=== PATIENT | female | born 1940 | race Two or more races ===

== ENCOUNTER 2020-02-09 21:59 | Inpatient (IN) | payer OTHER, MEDICAID, SELFPAY ==
[~2020-02-09] VITALS: Ht 157.5 cm; Wt 54.0 kg
[2020-02-09 22:20] VITALS: BP 128/54
[2020-02-09] MEDS ORDERED: HYDR-3298 PO (22:27)
[2020-02-09 23:12] LABS: BASOPHILS # (AUTO) 0.1 K/uL (0.00-0.22); BASOPHILS % (AUTO) 1.3 % (0.0-2.0); EOSINOPHILS % (AUTO) 0.1 % (0.0-4.0); HEMATOCRIT 37.9 % (36-48); HEMOGLOBIN 12.7 g/dL (12.0-16.0); LYMPHOCYTES # (AUTO) 1.6 K/uL (2.5-16.5); LYMPHOCYTES % (AUTO) 31.8 % (20.5-51.1); MEAN CORPUSCULAR HEMOGLOBIN 30 pg (27-31); MEAN CORPUSCULAR HGB CONC 34 g/dL (33-37); MEAN CORPUSCULAR VOLUME 88.9 fL (80-94); MONOCYTES # (AUTO) 0.4 K/uL (0.8-1.0); NEUTROPHILS % (AUTO) 58.8 % (42.2-75.2); PLATELET COUNT (AUTO) 288 K/uL (140-450); RED BLOOD CELL COUNT(AUTO) 4.27 MIL/uL (4.20-5.40); RED CELL DISTRIBUTION WIDTH 15.2 % (11.6-13.7); WHITE BLOOD COUNT (AUTO) 5.1 K/uL (4.8-10.8)
[2020-02-09 23:33] LABS: ALBUMIN 3.2 g/dL (3.4-5.0); ANION GAP 14.8 (8-16); ASPARTATE AMINOTRANSFERASE 70 U/L (15-37); CARBON DIOXIDE 23.2 mmol/L (21-32); CHLORIDE 95 mmol/L (98-107); CREATININE 1.2 mg/dL (0.6-1.3); GLUCOSE 103 mg/dL (74-106); SODIUM SERUM 129 mmol/L (136-145); TOTAL BILIRUBIN 0.4 mg/dL (0.0-1.0); UREA NITROGEN, BLOOD 23 mg/dL (7-18)
[2020-02-09 23:42] LABS: APPEARANCE,URINE CLEAR (CLEAR); BILIRUBIN,URINE NEGATIVE (NEGATIVE); BLOOD, URINE TRACE-I (NEGATIVE); COLOR,URINE YELLOW (YELLOW); LEUKOCYTE ESTERASE ,URINE NEGATIVE (NEGATIVE); NITRITE, URINE NEGATIVE (NEGATIVE); UGLUCOSE NEGATIVE (NEGATIVE)
[2020-02-09] MEDS ORDERED: NACL 0.9% 1,000 ML IV ONE (23:50)
[2020-02-10] MEDS ORDERED: PIPERACILLIN/TAZOBACTAM 3.375 GM in DEXTROSE 5% 50 ML IV ONE (00:10)
[2020-02-10] MEDS ORDERED: HYDROcodone/APAP 7.5/325 MG 1 TAB PO PRN (00:15)
[2020-02-10] MEDS ORDERED: ONDANSETRON 4 MG/2 ML VIAL IVP PRN (00:15)
[2020-02-10] MEDS ORDERED: ACETAMINOPHEN 325 MG TAB PO PRN (00:15)
[2020-02-10] MEDS ORDERED: PIPERACILLIN/TAZOBACTAM 3.375 GM VIAL IV ONE ×2 (00:18→05:24)
[2020-02-10] MEDS ORDERED: guaiFENesin DM 200/20 MG-10 ML 10 ML UDC PO PRN (00:55)
[2020-02-10 01:00] VITALS: BP 141/68
[2020-02-10 01:20] LABS: FREE T4 (FREE THYROXINE) 1.35 ng/dL (0.76-1.46); MAGNESIUM 2.1 mg/dL (1.8-2.4); PHOSPHORUS 2.7 mg/dL (2.5-4.9); THYROID STIMULATING HORMONE 2.14 uIU/mL (0.34-3.74)
[2020-02-10] MEDS: PIPERACILLIN/TAZOBACTAM 3.375 GM in DEXTROSE 5% 50 ML IV SCH ×3 (05:45→17:26)
[2020-02-10 05:46] VITALS: BP 136/83
[2020-02-10 08:00] VITALS: BP 147/63
[2020-02-10] MEDS: VITAMIN D 400 IU TAB PO SCH (08:51)
[2020-02-10] MEDS: ZINC SULF 220 MG CAP PO SCH (08:51)
[2020-02-10] MEDS: DOCUSATE SODIUM 100 MG GELCAP PO SCH ×2 (08:51→22:08)
[2020-02-10] MEDS: ASCORBIC ACID 500 MG TAB PO SCH (08:51)
[2020-02-10] MEDS: ENOXAPARIN 40 MG/0.4 ML SYR SUBQ SCH (09:10)
[2020-02-10] MEDS: LOSARTAN 50 MG TAB PO SCH (09:11)
[2020-02-10 12:00] VITALS: BP 115/63
[2020-02-10 16:00] VITALS: BP 109/66
[2020-02-10] MEDS ORDERED: DEXAMETHASONE 4 MG/ML VIAL IVP ONE (18:30)
[2020-02-10 20:00] VITALS: BP 122/61
[2020-02-10] MEDS ORDERED: DEXAMETHASONE 10 MG/ML VIAL IVP ONE (20:00)
[2020-02-10] MEDS ORDERED: DEXAMETHASONE 10 MG/ML VIAL ONE (22:05)
[2020-02-11] VITALS: BP 143/88
[2020-02-11 04:00] VITALS: BP 135/64
[2020-02-11 08:00] VITALS: BP 131/65
[2020-02-11 08:31] LABS: BASOPHILS % (AUTO) 0.9 % (0.0-2.0); HEMATOCRIT 38.8 % (36-48); HEMOGLOBIN 12.9 g/dL (12.0-16.0); LYMPHOCYTES % (AUTO) 19.4 % (20.5-51.1); MEAN CORPUSCULAR HEMOGLOBIN 30 pg (27-31); MEAN CORPUSCULAR HGB CONC 33 g/dL (33-37); MEAN CORPUSCULAR VOLUME 90.1 fL (80-94); MONOCYTES # (AUTO) 0.2 K/uL (0.8-1.0); MONOCYTES % (AUTO) 3.8 % (1.7-9.3); NEUTROPHILS # (AUTO) 3.8 K/uL (1.8-7.7); NEUTROPHILS % (AUTO) 75.9 % (42.2-75.2); PLATELET COUNT (AUTO) 298 K/uL (140-450); RED CELL DISTRIBUTION WIDTH 15.6 % (11.6-13.7)
[2020-02-11 08:57] LABS: CHOL/HDL RATIO 5.1 (1-4.5)
[2020-02-11 08:58] LABS: ALBUMIN 2.8 g/dL (3.4-5.0); ANION GAP 15.3 (8-16); ASPARTATE AMINOTRANSFERASE 76 U/L (15-37); CARBON DIOXIDE 22.8 mmol/L (21-32); CHLORIDE 99 mmol/L (98-107); CREATININE 1.2 mg/dL (0.6-1.3); GLUCOSE 122 mg/dL (74-106); MAGNESIUM 2.2 mg/dL (1.8-2.4); PHOSPHORUS 4.2 mg/dL (2.5-4.9); POTASSIUM 4.1 mmol/L (3.5-5.1); SODIUM SERUM 133 mmol/L (136-145); TOTAL BILIRUBIN 0.5 mg/dL (0.0-1.0); UREA NITROGEN, BLOOD 18 mg/dL (7-18)
[2020-02-11] MEDS: VITAMIN D 400 IU TAB PO SCH (09:00)
[2020-02-11] MEDS: ZINC SULF 220 MG CAP PO SCH (09:21)
[2020-02-11] MEDS: DOCUSATE SODIUM 100 MG GELCAP PO SCH ×2 (09:22→21:54)
[2020-02-11] MEDS: DEXAMETHASONE 4 MG TAB PO SCH (09:23)
[2020-02-11] MEDS: LOSARTAN 50 MG TAB PO SCH (09:24)
[2020-02-11] MEDS: ASCORBIC ACID 500 MG TAB PO SCH (09:25)
[2020-02-11] MEDS: ENOXAPARIN 40 MG/0.4 ML SYR SUBQ SCH (09:27)
[2020-02-11] MEDS ORDERED: CRUSHER, PILL MC ONE (09:31)
[2020-02-11 12:00] VITALS: BP 138/70
[2020-02-11 16:00] VITALS: BP 116/64
[2020-02-11 20:00] VITALS: BP 112/62
[2020-02-12] VITALS: BP 115/56
[2020-02-12 04:00] VITALS: BP 122/59
[2020-02-12 08:00] VITALS: BP 112/58
[2020-02-12] MEDS: VITAMIN D 400 IU TAB PO SCH (08:51)
[2020-02-12] MEDS: DEXAMETHASONE 4 MG TAB PO SCH (08:51)
[2020-02-12] MEDS: ASCORBIC ACID 500 MG TAB PO SCH (08:52)
[2020-02-12] MEDS: DOCUSATE SODIUM 100 MG GELCAP PO SCH ×2 (08:52→21:01)
[2020-02-12] MEDS: ZINC SULF 220 MG CAP PO SCH (08:52)
[2020-02-12] MEDS: LOSARTAN 50 MG TAB PO SCH (08:54)
[2020-02-12] MEDS: ENOXAPARIN 40 MG/0.4 ML SYR SUBQ SCH (08:55)
[2020-02-12] MEDS ORDERED: SIMETHICONE 80 MG TAB.CHEW PO PRN (09:05)
[2020-02-12 09:28] LABS: BASOPHILS % (AUTO) 0.2 % (0.0-2.0); HEMATOCRIT 41.1 % (36-48); HEMOGLOBIN 13.7 g/dL (12.0-16.0); LYMPHOCYTES # (AUTO) 1.4 K/uL (2.5-16.5); LYMPHOCYTES % (AUTO) 15.6 % (20.5-51.1); MEAN CORPUSCULAR HEMOGLOBIN 30 pg (27-31); MEAN CORPUSCULAR HGB CONC 33 g/dL (33-37); MEAN CORPUSCULAR VOLUME 89.4 fL (80-94); MONOCYTES # (AUTO) 0.9 K/uL (0.8-1.0); MONOCYTES % (AUTO) 10.4 % (1.7-9.3); NEUTROPHILS # (AUTO) 6.5 K/uL (1.8-7.7); NEUTROPHILS % (AUTO) 73.8 % (42.2-75.2); PLATELET COUNT (AUTO) 364 K/uL (140-450); RED CELL DISTRIBUTION WIDTH 15.7 % (11.6-13.7); WHITE BLOOD COUNT (AUTO) 8.7 K/uL (4.8-10.8)
[2020-02-12 09:43] LABS: ANION GAP 17.5 (8-16); ASPARTATE AMINOTRANSFERASE 62 U/L (15-37); CARBON DIOXIDE 20.5 mmol/L (21-32); CHLORIDE 98 mmol/L (98-107); CREATININE 1.3 mg/dL (0.6-1.3); GLUCOSE 137 mg/dL (74-106); LACTATE DEHYDROGENASE 614 U/L (81-234); SODIUM SERUM 132 mmol/L (136-145); TOTAL BILIRUBIN 0.4 mg/dL (0.0-1.0); UREA NITROGEN, BLOOD 37 mg/dL (7-18)
[2020-02-12 12:00] VITALS: BP 114/55
[2020-02-12 16:00] VITALS: BP 117/65
[2020-02-12 20:00] VITALS: BP 154/77
[2020-02-12 21:35] LABS: FERRITIN 2791 ng/mL (15 - 150); LACTATE DEHYDROGENASE 655 IU/L (0-214)
[2020-02-12] MEDS ORDERED: PIPERACILLIN/TAZOBACTAM 3.375 GM VIAL IV ONE (23:11)
[2020-02-12] MEDS: PIPERACILLIN/TAZOBACTAM 3.375 GM in DEXTROSE 5% 50 ML IV SCH (23:22)
[2020-02-13] VITALS: BP 121/70
[2020-02-13 04:00] VITALS: BP 144/69
[2020-02-13] MEDS ORDERED: PIPERACILLIN/TAZOBACTAM 3.375 GM VIAL IV ONE (05:14)
[2020-02-13] MEDS: PIPERACILLIN/TAZOBACTAM 3.375 GM in DEXTROSE 5% 50 ML IV SCH ×3 (05:20→20:41)
[2020-02-13 06:26] LABS: BASOPHILS % (AUTO) 0.3 % (0.0-2.0); HEMATOCRIT 38.6 % (36-48); HEMOGLOBIN 12.7 g/dL (12.0-16.0); LYMPHOCYTES # (AUTO) 1.2 K/uL (2.5-16.5); LYMPHOCYTES % (AUTO) 13.3 % (20.5-51.1); MEAN CORPUSCULAR HEMOGLOBIN 30 pg (27-31); MEAN CORPUSCULAR HGB CONC 33 g/dL (33-37); MEAN CORPUSCULAR VOLUME 90.3 fL (80-94); MONOCYTES % (AUTO) 11.6 % (1.7-9.3); NEUTROPHILS # (AUTO) 6.8 K/uL (1.8-7.7); NEUTROPHILS % (AUTO) 74.8 % (42.2-75.2); PLATELET COUNT (AUTO) 384 K/uL (140-450); RED BLOOD CELL COUNT(AUTO) 4.27 MIL/uL (4.20-5.40); RED CELL DISTRIBUTION WIDTH 15.7 % (11.6-13.7); WHITE BLOOD COUNT (AUTO) 9.1 K/uL (4.8-10.8)
[2020-02-13 07:15] LABS: ALBUMIN 2.6 g/dL (3.4-5.0); ANION GAP 17.6 (8-16); ASPARTATE AMINOTRANSFERASE 46 U/L (15-37); CARBON DIOXIDE 21.5 mmol/L (21-32); CHLORIDE 101 mmol/L (98-107); CREATININE 1.5 mg/dL (0.6-1.3); GLUCOSE 155 mg/dL (74-106); LACTATE DEHYDROGENASE 501 U/L (81-234); POTASSIUM 4.1 mmol/L (3.5-5.1); SODIUM SERUM 136 mmol/L (136-145); TOTAL BILIRUBIN 0.4 mg/dL (0.0-1.0); UREA NITROGEN, BLOOD 48 mg/dL (7-18)
[2020-02-13 08:00] VITALS: BP 128/68
[2020-02-13] MEDS: ASCORBIC ACID 500 MG TAB PO SCH (08:41)
[2020-02-13] MEDS: DEXAMETHASONE 4 MG TAB PO SCH (08:41)
[2020-02-13] MEDS: ZINC SULF 220 MG CAP PO SCH (08:42)
[2020-02-13] MEDS: DOCUSATE SODIUM 100 MG GELCAP PO SCH ×2 (08:42→20:41)
[2020-02-13] MEDS: VITAMIN D 400 IU TAB PO SCH (08:42)
[2020-02-13] MEDS: LOSARTAN 50 MG TAB PO SCH (09:01)
[2020-02-13] MEDS: ENOXAPARIN 40 MG/0.4 ML SYR SUBQ SCH (09:01)
[2020-02-13 12:00] VITALS: BP 131/66
[2020-02-13 16:00] VITALS: BP 128/65
[2020-02-13] MEDS: DEXT 5% /NACL 0.9% 1,000 ML IV SCH (16:20)
[2020-02-13 20:00] VITALS: BP 142/69
[2020-02-14] VITALS: BP 148/77
[2020-02-14 04:00] VITALS: BP 150/82
[2020-02-14] MEDS: PIPERACILLIN/TAZOBACTAM 3.375 GM in DEXTROSE 5% 50 ML IV SCH ×3 (04:10→21:20)
[2020-02-14 06:43] LABS: ALBUMIN 2.5 g/dL (3.4-5.0); ANION GAP 12.7 (8-16); ASPARTATE AMINOTRANSFERASE 43 U/L (15-37); CARBON DIOXIDE 23.9 mmol/L (21-32); CHLORIDE 107 mmol/L (98-107); CREATININE 1.7 mg/dL (0.6-1.3); GLUCOSE 134 mg/dL (74-106); LACTATE DEHYDROGENASE 516 U/L (81-234); POTASSIUM 3.6 mmol/L (3.5-5.1); SODIUM SERUM 140 mmol/L (136-145); TOTAL BILIRUBIN 0.5 mg/dL (0.0-1.0); UREA NITROGEN, BLOOD 49 mg/dL (7-18)
[2020-02-14 06:58] LABS: BASOPHILS % (AUTO) 0.1 % (0.0-2.0); HEMATOCRIT 37.6 % (36-48); HEMOGLOBIN 12.3 g/dL (12.0-16.0); LYMPHOCYTES # (AUTO) 1.3 K/uL (2.5-16.5); LYMPHOCYTES % (AUTO) 12.8 % (20.5-51.1); MEAN CORPUSCULAR HEMOGLOBIN 30 pg (27-31); MEAN CORPUSCULAR HGB CONC 33 g/dL (33-37); MEAN CORPUSCULAR VOLUME 90.5 fL (80-94); MONOCYTES % (AUTO) 10.4 % (1.7-9.3); NEUTROPHILS # (AUTO) 7.6 K/uL (1.8-7.7); NEUTROPHILS % (AUTO) 76.7 % (42.2-75.2); PLATELET COUNT (AUTO) 393 K/uL (140-450); RED BLOOD CELL COUNT(AUTO) 4.16 MIL/uL (4.20-5.40); RED CELL DISTRIBUTION WIDTH 15.6 % (11.6-13.7); WHITE BLOOD COUNT (AUTO) 9.9 K/uL (4.8-10.8)
[2020-02-14] MEDS: LOSARTAN 50 MG TAB PO SCH (09:28)
[2020-02-14] MEDS: ASCORBIC ACID 500 MG TAB PO SCH (09:28)
[2020-02-14] MEDS: VITAMIN D 400 IU TAB PO SCH (09:29)
[2020-02-14] MEDS: ZINC SULF 220 MG CAP PO SCH (09:29)
[2020-02-14] MEDS: DOCUSATE SODIUM 100 MG GELCAP PO SCH ×2 (09:29→21:00)
[2020-02-14] MEDS: DEXAMETHASONE 4 MG TAB PO SCH (09:30)
[2020-02-14] MEDS: ENOXAPARIN 40 MG/0.4 ML SYR SUBQ SCH (09:34)
[2020-02-14 10:57] VITALS: BP 133/77
[2020-02-14] MEDS ORDERED: NACL 0.9% 500 ML IV SCH (14:00)
[2020-02-14 14:03] LABS: LACTATE DEHYDROGENASE 468 IU/L (0-214)
[2020-02-14 14:07] LABS: FERRITIN 468 ng/mL (15 - 150)
[2020-02-14 16:00] VITALS: BP 136/56
[2020-02-14 20:00] VITALS: BP 160/78
[2020-02-14] MEDS: DEXT 5% /NACL 0.9% 1,000 ML IV SCH (21:21)
[2020-02-15] VITALS: BP 145/83
[2020-02-15 04:00] VITALS: BP 161/85
[2020-02-15] MEDS: PIPERACILLIN/TAZOBACTAM 3.375 GM in DEXTROSE 5% 50 ML IV SCH ×3 (05:02→21:24)
[2020-02-15 06:25] LABS: LD2 FRACTION 33 % (25-40); LD5 FRACTION 7 % (4-20)
[2020-02-15 06:25] LABS: LD2 FRACTION 35 % (25-40); LD3 FRACTION 27 % (17-27); LD5 FRACTION 9 % (4-20)
[2020-02-15 08:00] VITALS: BP 156/78
[2020-02-15] MEDS: DEXT 5% /NACL 0.9% 1,000 ML IV SCH (09:00)
[2020-02-15] MEDS: DOCUSATE SODIUM 100 MG GELCAP PO SCH ×2 (09:53→21:24)
[2020-02-15] MEDS: ASCORBIC ACID 500 MG TAB PO SCH (09:53)
[2020-02-15] MEDS: VITAMIN D 400 IU TAB PO SCH (09:54)
[2020-02-15] MEDS: ZINC SULF 220 MG CAP PO SCH (09:54)
[2020-02-15] MEDS: DEXAMETHASONE 4 MG TAB PO SCH (09:54)
[2020-02-15] MEDS: LOSARTAN 50 MG TAB PO SCH (09:54)
[2020-02-15] MEDS: ENOXAPARIN 40 MG/0.4 ML SYR SUBQ SCH (09:56)
[2020-02-15 12:00] VITALS: BP 160/91
[2020-02-15 16:00] VITALS: BP 150/88
[2020-02-15 20:00] VITALS: BP 150/88
[2020-02-16] VITALS: BP 145/85
[2020-02-16] MEDS: DEXT 5% /NACL 0.9% 1,000 ML IV SCH ×3 (01:00→21:36)
[2020-02-16 04:00] VITALS: BP 130/76
[2020-02-16] MEDS: PIPERACILLIN/TAZOBACTAM 3.375 GM in DEXTROSE 5% 50 ML IV SCH ×3 (04:53→21:35)
[2020-02-16 08:00] VITALS: BP_SYST 134; BP_SYST 141; BP_DIAS 82; BP_DIAS 91
[2020-02-16] MEDS: DOCUSATE SODIUM 100 MG GELCAP PO SCH ×3 (08:12→21:35)
[2020-02-16] MEDS: ASCORBIC ACID 500 MG TAB PO SCH ×2 (08:13→08:33)
[2020-02-16] MEDS: ZINC SULF 220 MG CAP PO SCH ×2 (08:13→08:33)
[2020-02-16] MEDS: DEXAMETHASONE 4 MG TAB PO SCH ×2 (08:13→08:33)
[2020-02-16] MEDS: VITAMIN D 400 IU TAB PO SCH ×2 (08:13→08:33)
[2020-02-16] MEDS: ENOXAPARIN 40 MG/0.4 ML SYR SUBQ SCH (08:14)
[2020-02-16] MEDS: LOSARTAN 50 MG TAB PO SCH (08:31)
[2020-02-16 12:00] VITALS: BP 135/58
[2020-02-16 16:00] VITALS: BP 137/84
[2020-02-16 20:00] VITALS: BP 117/70
[2020-02-17] VITALS: BP 117/76
[2020-02-17 04:00] VITALS: BP 114/70
[2020-02-17] MEDS: PIPERACILLIN/TAZOBACTAM 3.375 GM in DEXTROSE 5% 50 ML IV SCH (05:18)
[2020-02-17 06:31] LABS: BASOPHILS % (AUTO) 0.2 % (0.0-2.0); EOSINOPHILS % (AUTO) 0.1 % (0.0-4.0); HEMATOCRIT 40.8 % (36-48); HEMOGLOBIN 13.1 g/dL (12.0-16.0); LYMPHOCYTES % (AUTO) 6.9 % (20.5-51.1); MEAN CORPUSCULAR HEMOGLOBIN 29 pg (27-31); MEAN CORPUSCULAR HGB CONC 32 g/dL (33-37); MEAN CORPUSCULAR VOLUME 91.9 fL (80-94); MONOCYTES # (AUTO) 0.4 K/uL (0.8-1.0); MONOCYTES % (AUTO) 3.1 % (1.7-9.3); NEUTROPHILS # (AUTO) 12.5 K/uL (1.8-7.7); NEUTROPHILS % (AUTO) 89.7 % (42.2-75.2); PLATELET COUNT (AUTO) 491 K/uL (140-450); RED BLOOD CELL COUNT(AUTO) 4.44 MIL/uL (4.20-5.40); RED CELL DISTRIBUTION WIDTH 15.8 % (11.6-13.7); WHITE BLOOD COUNT (AUTO) 13.9 K/uL (4.8-10.8)
[2020-02-17 07:10] LABS: ANION GAP 17.8 (8-16); CARBON DIOXIDE 23.4 mmol/L (21-32); CHLORIDE 120 mmol/L (98-107); CREATININE 2.3 mg/dL (0.6-1.3); GLUCOSE 154 mg/dL (74-106); POTASSIUM 3.2 mmol/L (3.5-5.1); UREA NITROGEN, BLOOD 50 mg/dL (7-18)
[2020-02-17] MEDS ORDERED: TPN PER PHARMACY MC PRN (07:55)
[2020-02-17 08:00] VITALS: BP 149/77
[2020-02-17 09:17] LABS: SODIUM SERUM 158 mmol/L (136-145)
[2020-02-17 09:31] LABS: MAGNESIUM 2.5 mg/dL (1.8-2.4); PHOSPHORUS 2.9 mg/dL (2.5-4.9)
[2020-02-17] MEDS: ASCORBIC ACID 500 MG TAB PO SCH (10:06)
[2020-02-17] MEDS: ZINC SULF 220 MG CAP PO SCH (10:06)
[2020-02-17] MEDS: VITAMIN D 400 IU TAB PO SCH (10:06)
[2020-02-17] MEDS: LOSARTAN 50 MG TAB PO SCH (10:07)
[2020-02-17] MEDS: DEXAMETHASONE 4 MG TAB PO SCH (10:07)
[2020-02-17] MEDS: DOCUSATE SODIUM 100 MG GELCAP PO SCH ×2 (10:07→21:00)
[2020-02-17] MEDS: ENOXAPARIN 40 MG/0.4 ML SYR SUBQ SCH (10:13)
[2020-02-17] MEDS: DEXT 5% / NACL 0.45% 1,000 ML IV SCH (10:55)
[2020-02-17 12:00] VITALS: BP 144/70
[2020-02-17 16:00] VITALS: BP 105/68
[2020-02-17 20:00] VITALS: BP 98/61
[2020-02-17] MEDS ORDERED: [UNRECOGNIZED DRUG - OTHER] IV SCH ×4 (20:00)
[2020-02-17] MEDS ORDERED: AMINO ACIDS IV SCH ×4 (20:00)
[2020-02-17] MEDS ORDERED: DEXTROSE IV SCH ×4 (20:00)
[2020-02-17] MEDS ORDERED: MULTIVITAMIN IV SCH ×4 (20:00)
[2020-02-17] MEDS ORDERED: INSULIN LISPRO SLIDING SCALE 100 UNITS/ML VIAL SUBQ PRN (21:00)
[2020-02-18] VITALS: BP 87/56
[2020-02-18] MEDS: DEXT 5% / NACL 0.45% 1,000 ML IV SCH (00:48)
[2020-02-18] MEDS ORDERED: MORPHINE SULFATE 2 MG/ML SYR IVP SCH (03:45)
[2020-02-18 04:00] VITALS: BP 80/45
[2020-02-18] MEDS: BLOOD GLUCOSE MONITORING 1 DEV DEV MC SCH ×3 (06:25→12:00)
[2020-02-18 06:27] LABS: BASOPHILS % (AUTO) 0.3 % (0.0-2.0); HEMATOCRIT 38.9 % (36-48); HEMOGLOBIN 12.3 g/dL (12.0-16.0); LYMPHOCYTES # (AUTO) 1.1 K/uL (2.5-16.5); LYMPHOCYTES % (AUTO) 7.3 % (20.5-51.1); MEAN CORPUSCULAR HEMOGLOBIN 29 pg (27-31); MEAN CORPUSCULAR HGB CONC 32 g/dL (33-37); MEAN CORPUSCULAR VOLUME 91.9 fL (80-94); MONOCYTES # (AUTO) 0.5 K/uL (0.8-1.0); NEUTROPHILS # (AUTO) 13.7 K/uL (1.8-7.7); NEUTROPHILS % (AUTO) 89.4 % (42.2-75.2); PLATELET COUNT (AUTO) 478 K/uL (140-450); RED BLOOD CELL COUNT(AUTO) 4.23 MIL/uL (4.20-5.40); RED CELL DISTRIBUTION WIDTH 15.9 % (11.6-13.7); WHITE BLOOD COUNT (AUTO) 15.3 K/uL (4.8-10.8)
[2020-02-18 06:51] LABS: ANION GAP 21.9 (8-16); CARBON DIOXIDE 19.3 mmol/L (21-32); CHLORIDE 125 mmol/L (98-107); GLUCOSE 145 mg/dL (74-106); POTASSIUM 3.2 mmol/L (3.5-5.1)
[2020-02-18 07:56] LABS: MAGNESIUM 3.2 mg/dL (1.8-2.4); PHOSPHORUS 2.9 mg/dL (2.5-4.9)
[2020-02-18 08:00] VITALS: BP 105/60
[2020-02-18] MEDS ORDERED: LORazepam 2 MG/ML VIAL IVP PRN (08:50)
[2020-02-18] MEDS ORDERED: MORPHINE SULFATE 2 MG/ML SYR IVP PRN (08:50)
[2020-02-18] MEDS: DEXAMETHASONE 4 MG TAB PO SCH (09:00)
[2020-02-18] MEDS: ENOXAPARIN 40 MG/0.4 ML SYR SUBQ SCH (09:00)
[2020-02-18] MEDS: LOSARTAN 50 MG TAB PO SCH (09:00)
[2020-02-18] MEDS ORDERED: LORazepam 2 MG/ML VIAL IVP SCH (09:00)
[2020-02-18 09:24] LABS: CREATININE 4.2 mg/dL (0.6-1.3); SODIUM SERUM 163 mmol/L (136-145); UREA NITROGEN, BLOOD 84 mg/dL (7-18)
[2020-02-18 12:00] VITALS: BP 97/57
[2020-02-18] MEDS ORDERED: SCOPOLAMINE 1.5 MG/72 HR PATCH TD SCH (15:50)
[2020-02-18 16:00] VITALS: BP 95/60
[2020-02-18] MEDS: MORPHINE SULFATE 100 MG in NACL 0.9% 90 ML IV PRN ×4 (16:26→17:08)
[2020-02-18 17:08] VITALS: BP 154/74
[2020-02-18] MEDS ORDERED: MULTIVITAMIN-12 10 ML in DEXTROSE 50% 545 ML, AMINO ACIDS 8.5% 545 ML, FAT EMULSION 20%... IV SCH ×4 (20:00)
== END 2020-02-18 23:50 | disposition expired | DRG 208 ==
LOC: MED 21:59 → EEVIPCON 02-10 00:13 → MMU 02-10 00:13
PROVIDERS: ADMIT General Practice; ATTEND General Practice
PROC: 5A09357 Assistance with Respiratory Ventilation, Less than 24 Consecutive Hours, Continuous Positive Airway Pressure (ICD-10-PCS; principal; 2020-02-16)
PROC: 5A09357 Assistance with Respiratory Ventilation, Less than 24 Consecutive Hours, Continuous Positive Airway Pressure (ICD-10-PCS; 2020-02-17)
PROC: 02H633Z Insertion of Infusion Device into Right Atrium, Percutaneous Approach (ICD-10-PCS; 2020-02-17)
PROC: B548ZZA Ultrasonography of Superior Vena Cava, Guidance (ICD-10-PCS; 2020-02-17)
PROC: 5A1935Z Respiratory Ventilation, Less than 24 Consecutive Hours (ICD-10-PCS; 2020-02-17)
PROC: 5A09357 Assistance with Respiratory Ventilation, Less than 24 Consecutive Hours, Continuous Positive Airway Pressure (ICD-10-PCS; 2020-02-18)
DX: U07.1 COVID-19 (principal); J96.01 Acute respiratory failure with hypoxia; J12.89 Other viral pneumonia; E43 Unspecified severe protein-calorie malnutrition; N17.0 Acute kidney failure with tubular necrosis; G93.40 Encephalopathy, unspecified; E87.1 Hypo-osmolality and hyponatremia; E87.0 Hyperosmolality and hypernatremia; J98.11 Atelectasis; I46.9 Cardiac arrest, cause unspecified; Z66 Do not resuscitate; E87.8 Other disorders of electrolyte and fluid balance, not elsewhere classified; R74.0 Nonspecific elevation of levels of transaminase and lactic acid dehydrogenase [LDH]; I10 Essential (primary) hypertension; Z68.21 Body mass index [BMI] 21.0-21.9, adult; Z78.1 Physical restraint status; Z79.899 Other long term (current) drug therapy
CPT/HCPCS: 36415; 36600; 71045; 80048; 80053; 81001; 82150; 82550; 82728; 82803; 83036; 83605; 83615; 83625; 83690; 83735; 83880; 84100; 84439; 84443; 84484; 85025; 85379; 85610; 85651; 85730; 86140; 86886; 86900; 86901; 87040; 87081; 87086; 87804; 94660; 96365; 99291; A9153; C1751; J1100; J1650; J2060; J2270; J2543; J7030; J7042; J7060; Q0092; U0003-CS